=== PATIENT | male | born 1985 | race Hispanic/Latino ===

== ENCOUNTER 2020-02-03 08:09 | Emergency (ER) | payer OTHER, SELFPAY ==
[2020-02-03 08:20] VITALS: BP 165/93; PULSE 78; RESP 18; TEMP 36.6; O2SAT 100
--- NOTE | 2020-02-03 08:22 | ED.EAR ---
HPI - Ear Problem General Chief complaint: Ear Stated complaint: pain and pressure in both ears Time Seen by Provider: 02/03/20 08:20 Source: patient and RN notes reviewed Mode of arrival: ambulatory Limitations: no limitations History of Present Illness HPI Narrative: 34-year-old male with history of diabetes presents with concern for bilateral ear pain for 2 weeks. Reports intermittent ear pressure. Reports taking leftover amoxicillin for the last 2 days with no relief. Denies rhinorrhea, nasal congestion, sore throat, cough, fever MD Complaint: ear pain Location: bilateral Related Data Home Medications Medication Instructions Recorded Confirmed losartan 50 mg PO DAILY 02/03/20 02/03/20 metformin 1,000 mg PO DAILY 02/03/20 02/03/20 Allergies Allergy/AdvReac Type Severity Reaction Status Date / Time No Known Allergies Allergy Unverified 02/03/20 08:32 Review of Systems Review of Systems: Narrative: CONSTITUTIONAL: Denies malaise, chills, sweats, or fever. EYES: Denies visual changes, redness, or discharge. ENT: Denies rhinorrhea, congestion, sinus pain, and sore throat. Reports bilateral otalgia CARDIOVASCULAR: Denies chest pain, palpitations, or edema. RESPIRATORY: Denies cough or dyspnea. GASTROINTESTINAL: Denies abdominal pain, nausea, vomiting, diarrhea SKIN: Denies rash or itching. MUSCULOSKELETAL: Denies myalgia. NEUROLOGIC: Denies headache. All systems reviewed & are unremarkable except as noted in HPI and below PMFSH Comments At time of signature, agree with nursing past medical, surgical, social and family history. There is no relevant family history pertinent to the presenting complaint Exam Narrative: Exam Narrative: GENERAL: Well-appearing, well-nourished, and in no acute distress. HEAD: Normocephalic EYES: PERRLA, conjunctivae clear ENT: Nares clear, turbinates pink, discharge. Mucous membranes moist. TM pearly herron with dull light reflex bilaterally; left tragal tenderness, bilateral erythema and edema to auditory canal, discharge. Oropharynx not erythematous without lesions. Tonsils not enlarged and without exudate, no drooling, no hoarseness, no trismus, uvula midline. NECK: Supple. No lymphadenopathy CHEST: Clear to auscultation, breath sounds equal. No wheezing, rhonchi, rales, or stridor. No respiratory distress, speaks in full sentences. HEART: Regular rate and rhythm. No murmur heard. SKIN: Warm, dry, no rash. NEURO: Alert and oriented x3. PSYCH: Normal mood and affect Course Course Emergency Course: Patient is aware of diagnosis, understands and agrees to treatment plan. Anticipatory guidance given. Patient agrees to follow-up as directed and is aware of reasons to seek care at the emergency department. Portions of this record may have been created with voice recognition software Vital Signs Vital signs: Vital Signs Temperature 97.8 F 02/03/20 08:20 Pulse Rate 78 02/03/20 08:20 Respiratory Rate 18 02/03/20 08:20 Blood Pressure 165/93 H 02/03/20 08:20 Pulse Oximetry 100 02/03/20 08:20 Temperature 97.8 F 02/03/20 08:20 Pulse Rate 78 02/03/20 08:20 Respiratory Rate 18 02/03/20 08:20 Blood Pressure 165/93 H 02/03/20 08:20 Pulse Oximetry 100 02/03/20 08:20 Reviewed. Pt has been instructed to follow up with his primary care provider within the next week regarding his elevated blood pressure today. Medical Decision Making Vital Signs Vital Signs: Vital Signs Temperature 97.8 F 02/03/20 08:20 Pulse Rate 78 02/03/20 08:20 Respiratory Rate 18 02/03/20 08:20 Blood Pressure 165/93 H 02/03/20 08:20 Pulse Oximetry 100 02/03/20 08:20 Temperature 97.8 F 02/03/20 08:20 Pulse Rate 78 02/03/20 08:20 Respiratory Rate 18 02/03/20 08:20 Blood Pressure 165/93 H 02/03/20 08:20 Pulse Oximetry 100 02/03/20 08:20 Critical Care Time Critical Care Time Critical Care Time: No Discharge Plan Discharge Clinical Impression:
== END 2020-02-03 08:31 | disposition home or self-care (01) ==
PROVIDERS: Emergency Provider Nurse Practitioner
DX: H60.503 Unspecified acute noninfective otitis externa, bilateral (principal); I10 Essential (primary) hypertension; E11.9 Type 2 diabetes mellitus without complications
CPT/HCPCS: 99213; G0463